=== PATIENT | male | born 1980 | race Two or more races ===

== ENCOUNTER 2025-04-13 23:53 | Emergency (ER) | payer SELFPAY ==
[~2025-04-13] VITALS: Ht 170.2 cm; Wt 55.0 kg
[2025-04-13 23:55] VITALS: BP 121/73; RESP 18; TEMP 98.3; O2SAT 97
[2025-04-14] MEDS ORDERED: SODIUM CHLORIDE 0.9% 1,000 ML IV ONE
[2025-04-14 00:03] VITALS: PULSE 135
--- NOTE | 2025-04-14 02:15 | ED.PDOC ---
History of Present Illness HPI Comments 44 y/o M is BIBA from private residence for 2x day history of intermittent palpitations, shortness of breath, headache, cough, chills, and runny nose. Patient has a significant history of arrhythmia, DM II, HTN, and pancreatitis. He is reported to have admitted consuming unspecified amount of alcohol, mary r. Vitals were noted to have stable and within normal limits, with exception of being tachycardic and slightly hypertensive. On scene and en route, patient was also stated to have been agitated and uncooperative with EMS personnel to inquiries regarding his current presentation. Patient only reports recent isolated episode of unprovoked chest pain 2x days ago. Denies any current chest pain, fever, nausea, vomiting, or further associated symptoms. Chief Complaint: Palpitations Time Seen by MD: 23:50 Reviewed Notes: Nurses Notes, Medications, Allergies Information Source: Patient Mode of Arrival: Ambulatory Severity: Moderate Timing: Days Duration: Intermittent Prehospital treatment: 12 Lead EKG, [employer] System Engineer Review of Systems: REVIEW OF SYSTEMS: Chills, no fever HEENT: No neck pain, no blurred vision Cardiac: Palpitations, no chest pain Lungs: Shortness of breath, cough GI: No abdominal pain, no vomiting Musculoskeletal: No joint pain , no back pain Skin: No rash, no wound Neuro: Headache, no dizziness, no syncope Vital Signs Vital Signs Date Time Temp Pulse Resp B/P (MAP) Pulse Ox O2 Delivery O2 Flow Rate FiO2 04/14/25 00:03 135 04/13/25 23:55 98.3 18 121/73 (89) 97 98.3 Physical Exam General: Awake, alert and oriented. No acute distress. Skin: Skin in warm, dry and intact without rashes or lesions. HEENT: The head is normocephalic and atraumatic. Conjunctivae are clear without exudates or hemorrhage. Sclera is non-icteric. Neck: Normal range of motion. No JVD. Cardiac: Rapid rate but regular rhythm Respiratory: No signs of respiratory distress. No Stridor. Extremities: Upper and lower extremities are atraumatic in appearance without deformity. Neurological: The patient is awake, alert and oriented to person, place, and time with normal speech. Speech is clear. There is no facial asymmetry. Psychiatric: Appropriate mood and affect. Good judgement and insight. Past Medical History PAST MEDICAL HISTORY: DM (Type 2), HTN Past Medical History (Other): Arrhythmia Pancreatitis Surgical History: Denies all surgeries Family History Family History: Unknown Social History Smoker: Non-Smoker Alcohol: Denies ETOH Use Drugs: Denies Drug Use Lives In: Home Was a procedure done? Was a procedure done?: No Differential Dx Considerations may include: Differential diagnoses considered include acute ischemic coronary syndrome, aortic dissection, cardiac tamponade, mediastinitis, pulmonary embolus, pneumothorax, tension pneumothorax, esophageal rupture, coronary artery vasospasm, myocarditis, pericarditis, pneumonia, pulmonary edema, esophageal tear, pancreatitis, aortic stenosis, dilated cardiomyopathy, hypertrophic cardiomyopathy, mitral valve prolapse, malignancy, pleuritis, pneumomediastinum, primary pulmonary hypertension, cholecystitis, esophageal spasm, esophagus, gastritis, GERD, peptic ulcer disease, costochondritis, fibromyalgia, rib fracture, herpes zoster, radicular syndromes, thoracic outlet syndrome, somatization. X-Ray, Labs, Meds, VS Vital Signs Date Time Temp Pulse Resp B/P (MAP) Pulse Ox O2 Delivery O2 Flow Rate FiO2 04/14/25 00:03 135 04/13/25 23:55 98.3 133 18 121/73 (89) 97 98.3 04/13/25 23:55 133 Time of 1ST Reevaluation: 00:20 Reevaluation 1ST: Patient eloped from ED Patient Education/Counseling: Other (Patient eloped) Family Education/Counseling: No Family Present SEPSIS Sepsis Screen Date sepsis recognized/suspect: Apr 13, 2025 Time Sepsis recognized/suspect: 2354 Recent Procedure: No On Antibiotic Therapy: No Respiratory Rate >20: No Heart Rate >90: No Temp<36 C (96.8 F) or >38.3 C: No SBP <90 or MAP <65 mmHG: No New Acute Mental Status Change: No Is the patient on CPAP, BIPAP,: No Physician Orders Vital Signs Q1HR (04/13/25 23:59) Electrocardigram (04/13/25 23:59) Electrocardigram (04/14/25 00:59) Electrocardigram (04/14/25 02:59) Covid19 Antigen Olya (04/13/25 ) Rapid Influenza A&B (04/13/25 23:59) Vital Signs Date Time Temp Pulse Resp B/P (MAP) Pulse Ox O2 Delivery O2 Flow Rate FiO2 04/14/25 00:03 135 04/13/25 23:55 98.3 133 18 121/73 (89) 97 98.3 04/13/25 23:55 133 Departure 1 Departure Time of Disposition: 04:13 Impression: Primary Impression: Palpitations Additional Impression: Sinus tachycardia Disposition: LEFT AWOL/ELOPED Condition: Other Comments PATIENT ELOPED FROM THE EMERGENCY DEPARTMENT, HE WAS ESCORTED AWAY FROM THE HOSPITAL CAMPUS BY LAW ENFORCEMENT The following test were independently interpreted by me: EKG I reviewed the following notes from the pt's past medical encounters: N/A Additional information was gathered from interviewing the following independent historians: EMS PERSONNEL Critical Care Note Critical Care Time?: No Stability Stability form required: No Heart Score Heart Score: Heart Score Response (Comments) Value History N/A 0 EKG N/A 0 Age N/A 0 Risk Factors N/A 0 Troponin N/A 0 Total 0 I personally scribed for ELAINE LOZANO MD ([email or web address]) on 04/14/25 at 02:15. Electronically submitted by Vignesh Escobar ([email or web address]). ELAINE LOZANO MD Apr 14, 2025 02:15
== END 2025-04-14 00:33 | disposition left against medical advice (07) ==
LOC: ER 23:53 → EDBD 23:53 → ER 04-14 00:33
DX: R00.2 Palpitations (principal); R00.0 Tachycardia, unspecified; R06.02 Shortness of breath; R51.9 Headache, unspecified; R09.89 Other specified symptoms and signs involving the circulatory and respiratory systems; R05.9 Cough, unspecified; E11.9 Type 2 diabetes mellitus without complications; I10 Essential (primary) hypertension